=== PATIENT | female | born 1960 | race Caucasian/White ===

== ENCOUNTER 2018-02-15 08:08 | Day surgery (SDC) | payer OTHER, SELFPAY ==
[2018-02-15 08:48] VITALS: BP 151/87; PULSE 78; RESP 16; TEMP 36.7; O2SAT 99; BMI 48.6
[2018-02-15 09:05] LABS: Bedside Glucose 111 mg/dL (70-110)
--- NOTE | 2018-02-15 10:00 | HP.PCM_ITS ---
Problem List (1) Screening for intestinal cancer Status: Acute History of Present Illness Date of Admission: 02/15/18 The patient is a 57 year old F who presents for a screening colonoscopy. I saw her in the office on October 19. She is never had a previous colonoscopy. She denies bright red blood per rectum or melena. Primary medical problem is hypertension. There is no family history of colon cancer or colon polyps. She does have some sleep apnea. Current BMI is 48. The patient has scheduled the stay to proceed with a screening procedure. Past Medical History Medical History: Medical History (Last Updated 10/19/17 @ 08:07 by Tomeka Barrett) Screening for intestinal cancer (Acute) Z12.10 Arthritis M19.90 History of back problems Sleep apnea G47.30 Hypertension I10 Allergies prednisone Allergy (Verified 02/04/18 09:52) Hives hydrocodone [From [place]] Adverse Reaction (Verified 02/04/18 09:52) Other DIZZINESS Home Medications: Ambulatory Orders Medication Instructions Recorded aspirin 81 mg tablet,delayed 81 mg PO QDAY 10/19/17 release atenolol 25 mg tablet 25 mg PO QHS 10/19/17 celecoxib 200 mg capsule 200 mg PO QDAY 10/19/17 citalopram 20 mg tablet 20 mg PO QDAY 10/19/17 hydrochlorothiazide 12.5 mg tablet 12.5 mg PO QDAY 10/19/17 lactobacillus combination no.4 3 3,000 mmu cells PO QDAY 10/19/17 billion cell capsule losartan 50 mg tablet 50 mg PO QDAY 10/19/17 multivitamin capsule 1 cap PO QDAY 10/19/17 Acetaminophen [Tylenol Arthritis] 650 mg PO PRN PRN 02/04/18 Surgical History: Surgical History (Last Updated 10/19/17 @ 08:07 by Tomeka Barrett) History of laminectomy Z98.890 History of laparoscopic cholecystectomy Z90.49 History of tonsillectomy Z90.89 Smoking Status: Never smoker Review of Systems Constitutional: Denies: Anorexia HEENT: Denies: Difficulty Swallowing Cardiovascular: Denies: Chest Pain Gastrointestinal: Denies: Abdominal Pain, Hematochezia, Melena Skin: Denies: Jaundice VTE Information - Inpt Only VTE Present on Admission: No - Physical Exam General: Alert, Oriented x3, Cooperative, No apparent distress HEENT: Atraumatic Oral: Moist Mucosa Lungs: Clear to auscultation, Normal air movement Cardiovascular: Regular rate, Regular Rhythm Abdomen: Bowel Sounds Present, Soft, Non Tender, Non-Distended Extremities: No Calf Tenderness Neurological: Cranial nerves II-XII grossly intact Psych/Mental Status: Normal Affect Vital Signs Temp Pulse Resp BP Pulse Ox 98.1 F 78 16 151/87 H 99 02/15/18 08:48 02/15/18 08:48 02/15/18 08:48 02/15/18 08:48 02/15/18 08:48 Oxygen Delivery Method Room Air Weight: 329 lb 12.984 oz Body Mass Index (BMI) 48.6 POC Glucose 02/15/18 08:55 POC Glucose 111 H Assessment/Plan All Active Problems (Last Updated 10/19/17 @ 08:07 by Tomeka Barrett) Screening for intestinal cancer (Acute) We will proceed with a screening colonoscopy. The patient is aware of the technique, benefits, risks, alternatives. Her morbid obesity places her at increased risk. I will utilize monitored anesthesia care to facilitate sedation. We will proceed at her discretion. Rolly Fuller M.D., F.A.C.S.
--- NOTE | 2018-02-15 10:25 | OP.ENDO_ITS ---
Patient Name: Kaylee Lira Procedure Date: 02/15/2018 9:58 AM Date of : 1960 Age: 57 Procedure: Colonoscopy Indications: Screening for colorectal malignant neoplasm Providers: Rolly Fuller MD Referring MD: Rolly Fuller MD Medicines: See the Anesthesia note for documentation of the administered medications Patient Profile: Last Colonoscopy: none. The patient's first colonoscopy is today. Complications: No immediate complications. Procedure: Pre-Anesthesia Assessment: - Prior to the procedure, a History and Physical was performed, and patient medications and allergies were reviewed. The patient's tolerance of previous anesthesia was also reviewed. The risks and benefits of the procedure and the sedation options and risks were discussed with the patient. All questions were answered, and informed consent was obtained. Prior Anticoagulants: The patient has taken no previous anticoagulant or antiplatelet agents. ASA Grade Assessment: II - A patient with mild systemic disease. After reviewing the risks and benefits, the patient was deemed in satisfactory condition to undergo the procedure. After I obtained informed consent, the scope was passed under direct vision. Throughout the procedure, the patient's blood pressure, pulse, and oxygen saturations were monitored continuously. The adult colonoscope was introduced through the anus and advanced to the cecum, identified by appendiceal orifice and ileocecal valve. The colonoscopy was performed without difficulty. The patient tolerated the procedure well. The quality of the bowel preparation was good. The ileocecal valve was photographed. Scope In: 10:08:32 AM Scope Withdrawal Time 0 hours 7 minutes 24 seconds Scope Out: 10:21:35 AM Total Procedure Duration Time 0 hours 13 minutes 3 seconds Findings: The perianal and digital rectal examinations were normal. The colon (entire examined portion) appeared normal. Impression: - The entire examined colon is normal. - No specimens collected. Recommendation: - Discharge patient to home. - Resume previous diet. - Continue present medications. - Repeat colonoscopy in 10 years for screening purposes. Procedure Code(s): --- Professional --- 08400, Colonoscopy, flexible; diagnostic, including collection of specimen(s) by brushing or washing, when performed (separate procedure) Diagnosis Code(s): --- Professional --- Z12.11, Encounter for screening for malignant neoplasm of colon CPT copyright 2017 [employer]. All rights reserved. The codes documented in this report are preliminary and upon invoice coder review may be revised to meet current compliance requirements. Rolly Fuller MD 02/15/2018 10:25:34 AM This report has been signed electronically. Number of Addenda: 0 Note Initiated On: 02/15/2018 9:58 AM
[2018-02-15 10:26] VITALS: BP 131/61; BP 151/87; PULSE 85; RESP 16; TEMP 36.7; O2SAT 96
[2018-02-15 10:31] VITALS: BP 130/66; BP 151/87; PULSE 81; RESP 16; O2SAT 96
[2018-02-15 10:36] VITALS: BP 140/72; BP 151/87; PULSE 81; RESP 16; O2SAT 95
[2018-02-15 10:41] VITALS: BP 136/66; BP 151/87; PULSE 74; RESP 16; TEMP 36.7; O2SAT 97
[2018-02-15 11:07] VITALS: BP 151/87
== END 2018-02-15 11:07 | disposition home or self-care (01) ==
LOC: EN 08:09 → AC 08:20
PROVIDERS: Family Provider Internal Medicine; PCP Internal Medicine; Referring Provider Surgery; Visit Provider Surgery
PROC: 0DJD8ZZ Inspection of Lower Intestinal Tract, Via Natural or Artificial Opening Endoscopic (ICD-10-PCS; CPT 45378; principal; 2018-02-15 09:25)
DX: Z12.11 Encounter for screening for malignant neoplasm of colon (principal); I10 Essential (primary) hypertension; G47.30 Sleep apnea, unspecified; M19.90 Unspecified osteoarthritis, unspecified site; R73.03 Prediabetes; E66.01 Morbid (severe) obesity due to excess calories; Z68.42 Body mass index [BMI] 45.0-49.9, adult; Z79.82 Long term (current) use of aspirin; Z90.49 Acquired absence of other specified parts of digestive tract; Z98.890 Other specified postprocedural states; Z90.89 Acquired absence of other organs
CPT/HCPCS: 45378; 82962; J7120

== ENCOUNTER 2018-06-11 17:34 | Outpatient (RCR) | payer OTHER, SELFPAY | END 2018-06-20 23:59 | LOC: NS 17:34 | PROVIDERS: Family Provider Internal Medicine; PCP Internal Medicine; Visit Provider Physician Assistant | DX: E11.9 Type 2 diabetes mellitus without complications (principal); Z71.3 Dietary counseling and surveillance | CPT/HCPCS: 97803 ==

== ENCOUNTER 2018-07-03 16:35 | Outpatient (RCR) | payer OTHER, SELFPAY | END 2018-07-21 23:59 | LOC: NS 16:35 | PROVIDERS: Family Provider Internal Medicine; PCP Internal Medicine; Visit Provider Physician Assistant | DX: E11.29 Type 2 diabetes mellitus with other diabetic kidney complication (principal); Z71.3 Dietary counseling and surveillance | CPT/HCPCS: 97803 ==

== ENCOUNTER 2018-07-30 17:45 | Outpatient (RCR) | payer OTHER, SELFPAY | END 2018-08-20 23:59 | LOC: NS 17:45 | PROVIDERS: Family Provider Internal Medicine; PCP Internal Medicine; Visit Provider Physician Assistant | DX: E11.29 Type 2 diabetes mellitus with other diabetic kidney complication (principal); Z71.3 Dietary counseling and surveillance | CPT/HCPCS: 97803 ==

== ENCOUNTER 2018-08-27 16:53 | Outpatient (RCR) | payer OTHER, SELFPAY | END 2018-09-20 23:59 | LOC: NS 16:53 | PROVIDERS: Family Provider Internal Medicine; PCP Internal Medicine; Visit Provider Physician Assistant | DX: E11.29 Type 2 diabetes mellitus with other diabetic kidney complication (principal); Z71.3 Dietary counseling and surveillance | CPT/HCPCS: 97803 ==

== ENCOUNTER 2018-10-08 17:30 | Outpatient (RCR) | payer OTHER, SELFPAY | END 2018-10-20 23:59 | LOC: NS 17:30 | PROVIDERS: Family Provider Internal Medicine; PCP Internal Medicine; Visit Provider Physician Assistant | DX: E11.29 Type 2 diabetes mellitus with other diabetic kidney complication (principal); Z71.3 Dietary counseling and surveillance | CPT/HCPCS: 97803 ==

== ENCOUNTER 2018-12-31 17:06 | Outpatient (RCR) | payer OTHER, SELFPAY | END 2019-01-20 23:59 | LOC: NS 17:06 | PROVIDERS: Family Provider Internal Medicine; PCP Internal Medicine; Visit Provider Physician Assistant | DX: E11.29 Type 2 diabetes mellitus with other diabetic kidney complication (principal); Z71.3 Dietary counseling and surveillance | CPT/HCPCS: 97803 ==

== ENCOUNTER 2019-02-04 17:30 | Outpatient (RCR) | payer OTHER, SELFPAY | END 2019-02-20 23:59 | LOC: NS 17:30 | PROVIDERS: Family Provider Internal Medicine; PCP Internal Medicine; Visit Provider Physician Assistant | DX: E11.9 Type 2 diabetes mellitus without complications (principal); Z71.3 Dietary counseling and surveillance | CPT/HCPCS: 97803 ==

== ENCOUNTER 2019-05-26 17:00 | Outpatient (RCR) | payer OTHER, SELFPAY | END 2019-06-21 23:59 | LOC: NS 17:00 | PROVIDERS: Family Provider Internal Medicine; PCP Internal Medicine; Visit Provider Physician Assistant | DX: Z71.3 Dietary counseling and surveillance (principal); E11.9 Type 2 diabetes mellitus without complications | CPT/HCPCS: 97802 ==

== ENCOUNTER 2019-06-23 16:16 | Outpatient (RCR) | payer OTHER, SELFPAY | END 2019-07-22 23:59 | LOC: NS 16:16 | PROVIDERS: Family Provider Internal Medicine; PCP Internal Medicine; Visit Provider Physician Assistant | DX: Z71.3 Dietary counseling and surveillance (principal); E11.9 Type 2 diabetes mellitus without complications; E66.01 Morbid (severe) obesity due to excess calories; Z68.43 Body mass index [BMI] 50.0-59.9, adult | CPT/HCPCS: 97803 ==

== ENCOUNTER 2019-12-16 17:30 | Outpatient (RCR) | payer OTHER, SELFPAY | END 2019-12-22 23:59 | LOC: NS 17:30 | PROVIDERS: Family Provider Internal Medicine; PCP Internal Medicine; Visit Provider Physician Assistant | DX: Z71.3 Dietary counseling and surveillance (principal); E11.9 Type 2 diabetes mellitus without complications; E66.01 Morbid (severe) obesity due to excess calories; Z68.43 Body mass index [BMI] 50.0-59.9, adult | CPT/HCPCS: 97803 ==

== ENCOUNTER 2020-01-06 17:00 | Outpatient (RCR) | payer OTHER, SELFPAY | END 2020-01-21 23:59 | LOC: NS 17:00 | PROVIDERS: Family Provider Internal Medicine; PCP Internal Medicine; Visit Provider Physician Assistant | DX: Z71.3 Dietary counseling and surveillance (principal); E11.9 Type 2 diabetes mellitus without complications; E66.01 Morbid (severe) obesity due to excess calories; Z68.43 Body mass index [BMI] 50.0-59.9, adult | CPT/HCPCS: 97803 ==

== ENCOUNTER 2020-02-17 17:29 | Outpatient (RCR) | payer OTHER, SELFPAY | END 2020-02-21 23:59 | LOC: NS 17:29 | PROVIDERS: Family Provider Internal Medicine; PCP Internal Medicine; Visit Provider Physician Assistant | DX: Z71.3 Dietary counseling and surveillance (principal); E11.9 Type 2 diabetes mellitus without complications; E66.01 Morbid (severe) obesity due to excess calories; Z68.43 Body mass index [BMI] 50.0-59.9, adult | CPT/HCPCS: 97803 ==

== ENCOUNTER 2020-03-15 17:15 | Outpatient (RCR) | payer OTHER, SELFPAY | END 2020-03-15 23:59 | disposition home or self-care (01) | LOC: NS 17:15 | PROVIDERS: Family Provider Internal Medicine; PCP Internal Medicine; Visit Provider Physician Assistant | DX: Z71.3 Dietary counseling and surveillance (principal); E11.9 Type 2 diabetes mellitus without complications; E66.01 Morbid (severe) obesity due to excess calories; Z68.43 Body mass index [BMI] 50.0-59.9, adult | CPT/HCPCS: 97803 ==

== ENCOUNTER 2021-06-02 12:40 | Day surgery (SDC) | payer OTHER, SELFPAY ==
[2021-06-02] VITALS (7 sets, daily range): BP systolic 148–162; BP diastolic 77–89; PULSE 77–91; RESP 16–18; TEMP 36.4–37.7; O2SAT 93–98; BMI 48.6
[2021-06-02] MEDS: Acetaminophen 500 MG Tablet 1000 MG PO (13:45)
[2021-06-02] MEDS: Lactated Ringers 1,000 ML 15 ML IV (13:50)
--- NOTE | 2021-06-02 13:56 | PCM.DC ---
Discharge Instructions Diet Discharge Diet: No restrictions Activity May resume sexual activity in: 2 weeks Lifting Restrictions: none Dressing / Incision Call your doctor if your incision/area has: Sudden Increased Bleeding and Foul Smelling Discharge Call your doctor if you observe: Fever of 101 or Higher and Using more than 1 pad per hour (for 2 hrs in a row) Follow Up Care Please Follow Up With: Barb Velasquez MD When: 2-4 weeks or as needed. Call [phone] to make an appointment or with any concerns. Test Results: Test results from this visit will be discussed in further detail at your follow-up appointment, if applicable. Discharge Plan Admission Primary Reason for Your Visit: D&C Attending Provider: Barb Velasquez Primary Care Provider: Carie Schneider Discharge Orders/Prescriptions Prescriptions: No Action hydrochlorothiazide 12.5 mg tablet 12.5 mg PO QDAY RF: 0 celecoxib [Celebrex] 200 mg capsule 200 mg PO QDAY RF: 0 aspirin [Enteric Coated Aspirin] 81 mg tablet,delayed release (DR/EC) 81 mg PO QDAY RF: 0 multivitamin capsule capsule 1 cap PO QDAY RF: 0 lactobacillus combination no.4 [Probiotic] 3 billion cell capsule 3,000 mmu cells PO QDAY RF: 0 citalopram [Celexa] 20 mg tablet 20 mg PO .BID RF: 0 losartan 50 mg tablet 100 mg PO QDAY RF: 0 acetaminophen 650 MG tablet extended release 650 mg PO PRN PRN (Reason: Pain) RF: 0 Referrals / Follow Up: Carie Schneider MD [Primary Care Provider] - Disposition Disposition (needs filled in before D/C Order can be placed): Home, Self Care
[2021-06-02] MEDS: Lidocaine 1% (30 ml sdv) 30 ML Vial (14:15)
--- NOTE | 2021-06-02 14:25 | PCM.OPRPT ---
Problems Associated Problem List Diagnoses (1) PMB (postmenopausal bleeding): (2) Endocervical polyp: Report of Operation Date of Procedure: 06/02/21 Pre-Operative Diagnosis: PMB,. endocervical polyp Post-Operative Diagnosis: PMB Surgery/Procedure Performed:: Hysteorscopy D&C with symphion Description of Surgical Findings:: long narrow uterus, normal cervix, polypoid appearing endometrium. No discrete endocervical pathology noted Surgeon: Barb Velasquez robotics technologist: None Type of Anesthesia: MAC/Supplemental/Local Anesthesiologist: Rajat Wood Special Medications: none Specimen's removed: Endometrial curettings Drains: none Estimated Blood Loss (mL): 10 Fluids Replaced: 300 Description of Procedure: The patient was taken to the OR where she was prepped and draped in dorsal lithotomy position. The weighted speculum was placed in the vagina and the anterior lip of the cervix was grasped with a single-tooth tenaculum. A paracervical block was administered with 1% Xylocaine plain because epinephrine was not available. The cervix was dilated serially with Hegar dilators. The Symphion hysteroscope was placed into the uterine cavity and the above findings were noted. Bilateral tubal ostia [were] identified. The sympthion hysteroscope resection device was readied and inserted. A visual resection of the endometrium and endocervix was completed. The instruments were removed from the vagina. The specimen was handed off and sent to pathology. All sponge and needle counts were correct. Vaginal sweep was performed by me. The patient was awakened and taken to the recovery room in stable condition. Hysteroscopic fluid deficit was calculated to be 250 cc normal saline. Grafts/Implants Used: none Procedure Start Time: 14:08 Procedure Stop Time: 14:16 Complications none Admit VTE Documentation VTE Present on Admission: No VTE Mechan Device Prophylaxis: SCD's VTE Pharm Prophylaxis ordered?: No Reason prophylaxis not ordered:: Procedure Not Indicated
--- NOTE | 2021-06-02 14:40 | EMB_PTH ---
PATIENT: AMIRA RUIZ LOC: [facility] [place] U#:[id number] AGE/SX: 60/F ROOM: RE06/02/[address]: Dr. Barb Velasquez MD : 1960 BED: DIS: 06/02/2021 SPEC #: [id number] RECD: 06/02/21 14:46 STATUS: YONATHAN RODRÍGUEZ #: [id number] ZIGGY: 06/02/21 14:[address]: Barb Velasquez DEPT: SURGICAL PATHOLOGY RECD BY: Meseret Glez ENTERED: 06/03/21 09:42 SP TYPE: ENDOM BX/C OTHR DR: Dr. Carie Schneider MD Tissues: Endometrium, NOS Procedures: Surgery Specimen Level IV HEADER OPERATION: Hysterectomy, D & C Symphion PRE-OP DIAGNOSIS: PMB, endocervical polyp TISSUE SUBMITTED: Endometrial curettings MICROSCOPIC DIAGNOSIS Endometrium, curettings: Cauterized fragments of inactive endometrium with focal cystic change. Fragments of benign myometrium. AM:jazzy 06/06/2021 COMMENT Case has been reviewed in consultation with Dr. Downing who concurs with the above diagnosis. IDC:[email or web address] MICROSCOPIC DESCRIPTION Slides are reviewed. GROSS DESCRIPTION Received in fixative is one container labeled with the patient's name and designated endometrial curettings. The specimen consists of multiple irregular fragments of liang soft tissue that in aggregate measure 2 x 0.5 x 0.1 cm. The specimen is totally submitted in one cassette. / ETHAN:jazzy 06/03/2021 TC:5 CPT: 50702
== END 2021-06-02 23:59 | disposition home or self-care (01) ==
LOC: SDC 12:47 → AC 12:48
PROVIDERS: PCP Internal Medicine; Visit Provider Obstetrics & Gynecology
PROC: 0UB98ZZ Excision of Uterus, Via Natural or Artificial Opening Endoscopic (ICD-10-PCS; CPT 58558; principal; 2021-06-02 14:25)
DX: N84.1 Polyp of cervix uteri (principal); E11.9 Type 2 diabetes mellitus without complications; N95.0 Postmenopausal bleeding; G47.33 Obstructive sleep apnea (adult) (pediatric); I10 Essential (primary) hypertension; F32.A Depression, unspecified; F41.9 Anxiety disorder, unspecified; Z99.89 Dependence on other enabling machines and devices; I73.00 Raynaud's syndrome without gangrene
CPT/HCPCS: 58558; 00952; 88305; J7120

== ENCOUNTER 2021-08-26 07:30 | Outpatient (RCR) | payer OTHER, SELFPAY ==
--- NOTE | 2021-07-11 16:58 | HP.PTEVAL ---
Patient's Visit Information AMIRA RUIZ is a 60 year old F referred to Physical Therapy by Dr. Saji Martinez MD with a diagnosis of R TKA 06/16/21. Date of Evaluation: 07/11/21 Physical Therapist: Deepak Dillard, PT, ATC - Visit Plan Frequency: 2-3x /Week Duration: 4-6 Weeks Plan: R knee PROM/mobs, R LE stretching and strengthening, core stab ex's, nustep, and HEP - Subjective DOS: 06/16/21. Pt reports a chronic Hx of R knee pain for greater than 10 years. Pt reports she is glad she had the surgery at this time. Pt reports the severe pain she had prior to surgery is now gone. Pt reports she was very limited with ambulation prior to surgery. 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 Pt reports she has 3 stairs to get into her house and negotiates them one step at a time. Pt reports she does have some numbness on the lateral aspect of her R knee. Pt reports she is limited with all house chores at this time secondary to pain and limited stamina. Pt reports she continues to have sleep difficulty secondary to R knee pain. 3/10 pain at rest, 7/10 pain at worst (when she is trying to sleep at night and when she attempts to stand after sitting for a while.) - Pain R TKA Pain Intensity (Out of 10): 3 Pain Intensity Range: 7 - Objective Neuro: B LE sensation is WNL to light touch with exception to R L4 dermatome is hyposensitive. Girth at joint line: R 57 cm, L 50 cm. ROM: L knee 0-10-120; R knee 0-15-90. MMT: L knee flex= 26, ext= 30; R knee flex= 20, ext= 13 #F. Tu.68 seconds - Balance/Special Test Scores Lower Extremity Functional Score: 12 - Goals Goal 1:: Decrease R knee pain x 50% to aid with sleep Goal Time Frame: 4-6 Weeks Goal 2:: Increase R knee strength x 5-10#F to aid with stair negotiation Goal Time Frame: 4-6 Weeks Goal 3:: Decrease TUG test time x 5 seconds to aid with community ambulation Goal Time Frame: 4-6 Weeks Goal 4:: I with HEP Goal Time Frame: 4-6 Weeks - Rehabilitation Potential Physical Therapy Diagnosis: Pt has R knee pain, weakness, and limited ROM secondary to R TKA Rehabilitation Potential: Good - Anticipated Interventions Patient/Client Instruction: Educate patient on: Condition, Plan of Care For the Purpose of:: To improve self management Therapeutic Exercise to Include: Strength training, Endurance training, Balance training, Flexibilty training, Gait and locomotor training, Passive ROM, Active ROM, Dynamic Lumbar Stabilization For the Purpose of:: To decrease pain, To increase ROM, To improve muscle performance and motor function Cryotherapy (ice pack, ice massage): Yes For the Purpose of:: To decrease pain Thank you for the opportunity to evaluate your patient. For Medicare and Medicare HMO plans, please review the plan of care and approve it. It will need to be FAXED BACK to us at [phone] for Medicare purposes. For Medicare only, by signing this I certify the plan of care. Please let me know if there are questions or concerns regarding this plan of care. Physician Signature: Date:
--- NOTE | 2021-08-26 08:07 | HP.PTDCSUM ---
It has been my pleasure to treat AMIRA RUIZ referred by Dr. Saji Martinez MD, with the diagnosis of R TKA 06/16/21 for a total of 20 visit(s). Discharge Date: Please see the following information for a summary of their discharge status. Subjective: Pt reports she feels ready to continue I at this time. Pt reports only mild pain today R TKA Pain Intensity (Out of 10): 1 L LB Pain Intensity (Out of 10): 1 % Improvement: 80 Objective/Function: R knee pain 05/02. R knee MMT: flex= 29, ext= 26 #F. R knee ROM: 0-108 degrees. TU.9. Rx goals achieved Goal 1:: Decrease R knee pain x 50% to aid with sleep Goal Progress: Goal Met Goal 2:: Increase R knee strength x 5-10#F to aid with stair negotiation Goal Progress: Goal Met Goal 3:: Decrease TUG test time x 5 seconds to aid with community ambulation Goal Progress: Goal Met Goal 4:: I with HEP Goal Progress: Goal Met Plan: Discharge to gym routine If there are questions or concerns regarding this patient's physical therapy, please feel free to call me at [phone]. Thank you for the referral of this patient. Sincerely, Deepak Dillard, PT, ATC Balance/Gait/Functional tests - Balance/Special Test Scores Lower Extremity Functional Score: 52
== END 2021-08-26 10:09 | disposition home or self-care (01) ==
LOC: PT 07:30
PROVIDERS: PCP Internal Medicine; Referring Provider Orthopaedic Surgery; Visit Provider Orthopaedic Surgery
DX: M17.11 Unilateral primary osteoarthritis, right knee (principal); Z96.651 Presence of right artificial knee joint
CPT/HCPCS: 97110; 97140; 97161; 97164